=== PATIENT | male | born 1965 | race Caucasian/White ===

== ENCOUNTER 2024-11-09 16:48 | Inpatient (IN) | payer OTHER, MEDICAID, MEDICARE ==
[~2024-11-09] VITALS: Ht 167.6 cm; Wt 82.6 kg
[2024-11-09] VITALS (22 sets, daily range): BP systolic 149–185; BP diastolic 80–107; PULSE 67–80; RESP 15–25; TEMP 36.61404–36.6404; O2SAT 90–95
[2024-11-09] MEDS: HEPARIN 5000 UNITS/ML VIAL IV ONE (17:15)
[2024-11-09] MEDS: SODIUM CHLORIDE 0.9% 500 ML IV ONE (17:15)
[2024-11-09 17:16] LABS: BASOPHILS % 0.3 % (0.0-2.0); EOSINOPHILS % 0.5 % (0.0-5.0); HEMATOCRIT. 46.5 % (42.0-52.0); HEMOGLOBIN. 15.4 g/dL (14.0-18.0); MEAN CORPUSCULAR HEMOGLOBIN 30.4 pg (28.0-32.0); MEAN CORPUSCULAR HGB CONC 33.2 g/dL (31.0-37.0); MEAN CORPUSCULAR VOLUME 91.8 fL (80.0-94.0); MEAN PLATELET VOLUME 8.6 fl (7.4-10.4); MONOCYTES % 4.9 % (2.0-8.0); NEUTROPHILS % 80.3 % (40.0-76.0); PLATELET 267 x1000/uL (130-400); RED BLOOD CELL COUNT 5.07 mill/uL (4.7-6.1); RED CELL DISTRIBUTION WIDTH 13.4 % (11.6-14.6); WHITE BLOOD COUNT 11.5 x1000/uL (4.5-11.0)
[2024-11-09] MEDS ORDERED: IODIXANOL 320MG/ML 100 ML BOTTLE IV ONE ×2 (17:18→17:49)
[2024-11-09] MEDS ORDERED: HEPARIN 1000 UNITS/ML 10ML ONE ×2 (17:18→18:06)
[2024-11-09] MEDS ORDERED: LIDOCAINE HCL 1% 20ML VIAL ONE (17:19)
[2024-11-09] MEDS: ASPIRIN 325MG TABLET PO ONE (17:21)
[2024-11-09 17:26] LABS: CHLORIDE 101 mEq/L (98-107); POTASSIUM 3.7 mEq/L (3.5-5.1); SODIUM 139 mEq/L (136-145)
[2024-11-09 17:27] LABS: CARBON DIOXIDE 31 mEq/L (21-32); PROTHROMBIN TIME 10.7 sec (9.6-11.0)
[2024-11-09 17:28] LABS: CALCIUM 9.7 mg/dL (8.7-10.4)
[2024-11-09] MEDS ORDERED: MIDAZOLAM HCL 2 MG/2 ML VIAL ONE (17:31)
[2024-11-09] MEDS ORDERED: FENTANYL CITRATE/PF 50MCG/ML 2ML VIAL ONE (17:31)
[2024-11-09 17:32] LABS: CREATININE 1.1 mg/dL (0.6-1.3); GLUCOSE 159 mg/dL (70-105); UREA NITROGEN BLOOD 18 mg/dL (9-23)
[2024-11-09 17:35] LABS: TROPONIN I HIGH SENSITIVITY 137 ng/L (3.0-53)
[2024-11-09] MEDS ORDERED: ATROPINE SULFATE 1MG/10ML SYR ONE (17:36)
[2024-11-09] MEDS ORDERED: CLOPIDOGREL 75MG TABLET ONE (17:57)
[2024-11-09] MEDS ORDERED: DEXTROSE 50% WATER 50ML SYRINGE IV PRN (20:00)
[2024-11-09] MEDS ORDERED: ONDANSETRON HCL 4MG/2ML INJ IV PRN (20:00)
[2024-11-09] MEDS ORDERED: MAGNESIUM/ALUMINUM HYDROXIDE/SIMETHICONE 30ML UDC PO PRN (20:00)
[2024-11-09] MEDS ORDERED: GUAIFENESIN 200MG/10ML SUGAR FREE UDC PO PRN (20:00)
[2024-11-09] MEDS ORDERED: HYDRALAZINE 20MG/ML VIAL IV PRN (20:00)
[2024-11-09] MEDS ORDERED: CLONIDINE 0.1MG TABLET PO PRN (20:00)
[2024-11-09] MEDS ORDERED: DOCUSATE SODIUM 100MG CAPSULE PO PRN (20:00)
[2024-11-09] MEDS ORDERED: ACETAMINOPHEN 325MG TABLET PO PRN ×2 (20:00)
[2024-11-09] MEDS ORDERED: IPRATROPIUM/ALBUTEROL 0.5-3(2.5)MG/3ML NEB HHN PRN (20:00)
[2024-11-09] MEDS ORDERED: NITROGLYCERIN 0.4MG TABLET SL SL PRN (20:45)
[2024-11-09] MEDS: INSULIN LISPRO 100 UNITS/ML SUBCUT SCH (21:00)
[2024-11-09] MEDS ORDERED: MORPHINE SULFATE 2 MG/ML INJ (NOT FOR IM USE) IV PRN (21:00)
[2024-11-09] MEDS ORDERED: ATORVASTATIN CALCIUM 40MG TABLET PO SCH (21:00)
[2024-11-09] MEDS: BLOOD SUGAR DIAGNOSTIC STRIP TEST SCH (21:11)
[2024-11-09] MEDS ORDERED: NALOXONE HCL 0.4MG/ML VIAL IV PRN (21:15)
[2024-11-09] MEDS: ATORVASTATIN CALCIUM 40MG TABLET PO SCH (21:16)
[2024-11-09] MEDS: CARVEDILOL 3.125 MG TABLET PO SCH (21:17)
[2024-11-09 22:58] LABS: TROPONIN I HIGH SENSITIVITY 3029 ng/L (3.0-53)
[2024-11-10] VITALS (47 sets, daily range): BP systolic 126–177; BP diastolic 63–112; PULSE 61–89; RESP 13–25; TEMP 36.55848–36.9474; O2SAT 92–98
[2024-11-10 02:40] LABS: TROPONIN I HIGH SENSITIVITY 11718 ng/L (3.0-53)
[2024-11-10 06:22] LABS: BASOPHILS % 0.4 % (0.0-2.0); EOSINOPHILS % 1.6 % (0.0-5.0); HEMATOCRIT. 42.3 % (42.0-52.0); HEMOGLOBIN. 14.5 g/dL (14.0-18.0); LYMPHOCYTES % 18.9 % (20.0-50.0); MEAN CORPUSCULAR HEMOGLOBIN 31.3 pg (28.0-32.0); MEAN CORPUSCULAR HGB CONC 34.2 g/dL (31.0-37.0); MEAN CORPUSCULAR VOLUME 91.6 fL (80.0-94.0); MEAN PLATELET VOLUME 8.4 fl (7.4-10.4); MONOCYTES % 7.7 % (2.0-8.0); NEUTROPHILS % 71.4 % (40.0-76.0); PLATELET 231 x1000/uL (130-400); RED BLOOD CELL COUNT 4.62 mill/uL (4.7-6.1); RED CELL DISTRIBUTION WIDTH 13.4 % (11.6-14.6); WHITE BLOOD COUNT 9.8 x1000/uL (4.5-11.0)
[2024-11-10 06:27] LABS: CHLORIDE 102 mEq/L (98-107); POTASSIUM 3.7 mEq/L (3.5-5.1); SODIUM 138 mEq/L (136-145)
[2024-11-10 06:28] LABS: CARBON DIOXIDE 31 mEq/L (21-32)
[2024-11-10 06:33] LABS: CREATININE 0.8 mg/dL (0.6-1.3); GLUCOSE 155 mg/dL (70-105); TRIGLYCERIDE 351 mg/dL (0-150); UREA NITROGEN BLOOD 15 mg/dL (9-23)
[2024-11-10 06:34] LABS: LDL CHOLESTEROL 148 mg/dL (5-100)
[2024-11-10 06:35] LABS: CHOLESTEROL 275 mg/dL (<200); HDL CHOLESTEROL 38 mg/dL (>55); PHOSPHORUS 3.7 mg/dL (2.5-4.9); T4 FREE 1.07 ng/dL (0.89-1.76)
[2024-11-10 06:36] LABS: THYROID STIMULATING HORMONE 0.54 uIU/mL (0.55-4.78)
[2024-11-10 08:50] LABS: CREATINE KINASE MB FRACTION 87.3 ng/mL (0.5-3.6)
[2024-11-10] MEDS: PANTOPRAZOLE SODIUM 40 MG/VIAL IV SCH (08:52)
[2024-11-10] MEDS: ASPIRIN 81MG EC TABLET PO SCH (08:53)
[2024-11-10] MEDS: CLOPIDOGREL 75MG TABLET PO SCH (08:53)
[2024-11-11] VITALS: BP 130/67; PULSE 70; RESP 18; TEMP 36.44736; O2SAT 96
[2024-11-11 04:00] VITALS: BP 121/57; PULSE 70; RESP 18; TEMP 36.55848; O2SAT 95
[2024-11-11 07:46] LABS: BASOPHILS % 0.7 % (0.0-2.0); EOSINOPHILS % 1.6 % (0.0-5.0); HEMATOCRIT. 41.5 % (42.0-52.0); HEMOGLOBIN. 14.1 g/dL (14.0-18.0); LYMPHOCYTES % 23.5 % (20.0-50.0); MEAN CORPUSCULAR HEMOGLOBIN 31.1 pg (28.0-32.0); MEAN CORPUSCULAR VOLUME 91.2 fL (80.0-94.0); MEAN PLATELET VOLUME 8.7 fl (7.4-10.4); MONOCYTES % 7.6 % (2.0-8.0); NEUTROPHILS % 66.6 % (40.0-76.0); PLATELET 202 x1000/uL (130-400); RED BLOOD CELL COUNT 4.55 mill/uL (4.7-6.1); RED CELL DISTRIBUTION WIDTH 13.2 % (11.6-14.6); WHITE BLOOD COUNT 7.6 x1000/uL (4.5-11.0)
[2024-11-11 07:56] LABS: CHLORIDE 102 mEq/L (98-107); POTASSIUM 3.7 mEq/L (3.5-5.1); SODIUM 139 mEq/L (136-145)
[2024-11-11 07:57] LABS: CARBON DIOXIDE 29 mEq/L (21-32)
[2024-11-11 08:00] VITALS: BP 134/71; PULSE 72; RESP 18; TEMP 36.78072; O2SAT 94
[2024-11-11 08:02] LABS: CREATININE 0.9 mg/dL (0.6-1.3); GLUCOSE 159 mg/dL (70-105); UREA NITROGEN BLOOD 18 mg/dL (9-23)
[2024-11-11] MEDS ORDERED: ASPI-1406 PO (11:46)
[2024-11-11] MEDS ORDERED: CLOP-31 PO (11:46)
[2024-11-11] MEDS ORDERED: LIP40 PO (11:46)
[2024-11-11] MEDS ORDERED: COR3 PO (11:46)
[2024-11-11 12:00] VITALS: BP 137/75; PULSE 74; RESP 18; TEMP 36.55848; O2SAT 97
[2024-11-11 15:57] VITALS: BP 125/75; PULSE 71; TEMP 98.2; O2SAT 96
[2024-11-11 16:00] VITALS: BP 125/75; PULSE 71; RESP 18; TEMP 36.78072; O2SAT 96
== END 2024-11-11 17:00 | disposition home or self-care (01) | DRG 322 ==
LOC: ER 16:48 → CVICU 17:21 → 7EST 11-10 20:32
PROVIDERS: ADMIT Hospitalist; ATTEND Hospitalist
PROC: 027034Z Dilation of Coronary Artery, One Artery with Drug-eluting Intraluminal Device, Percutaneous Approach (ICD-10-PCS; principal; 2024-11-09)
PROC: 02C03ZZ Extirpation of Matter from Coronary Artery, One Artery, Percutaneous Approach (ICD-10-PCS; 2024-11-09)
PROC: 4A023N7 Measurement of Cardiac Sampling and Pressure, Left Heart, Percutaneous Approach (ICD-10-PCS; 2024-11-09)
PROC: B211YZZ Fluoroscopy of Multiple Coronary Arteries using Other Contrast (ICD-10-PCS; 2024-11-09)
PROC: B215YZZ Fluoroscopy of Left Heart using Other Contrast (ICD-10-PCS; 2024-11-09)
DX: I21.19 ST elevation (STEMI) myocardial infarction involving other coronary artery of inferior wall (principal); E66.2 Morbid (severe) obesity with alveolar hypoventilation; E11.9 Type 2 diabetes mellitus without complications; G89.29 Other chronic pain; I10 Essential (primary) hypertension; E78.00 Pure hypercholesterolemia, unspecified; Z91.148 Patient's other noncompliance with medication regimen for other reason; Z79.02 Long term (current) use of antithrombotics/antiplatelets; Z79.4 Long term (current) use of insulin; Z79.82 Long term (current) use of aspirin; Z79.899 Other long term (current) drug therapy; Z87.891 Personal history of nicotine dependence; Z82.3 Family history of stroke
CPT/HCPCS: 36415; 71045; 80048; 80061; 82040; 82550; 82553; 82962; 83036; 83735; 83880; 84100; 84145; 84439; 84443; 84484; 85025; 85347; 86850; 86900; 92941; 92973; 93005; 93306; 93458; 99291; C1769; C1874; C1887; C1893; J0461; J1644; J1815; J2250; J2470; J3010; J3490; J7040; Q9967